=== PATIENT | male | born 1950 | race Caucasian/White ===

== ENCOUNTER 2018-01-05 13:19 | Emergency (ER) | payer MEDICARE, OTHER ==
[~2018-01-05] VITALS: Ht 172.7 cm; Wt 120.0 kg
[~2018-01-05 13:19] MED LIST: ASPI81 PO; COLY4000S PO; GABA400 PO; LISI10TA PO; METH500T3 PO; METO25 PO; MULTTAB4 PO; NIAC250C6 PO; OMEP20TA39 PO; SERT-132 PO; SIMV40TA PO; STOO100C PO; TERA2CAP3 PO
[2018-01-05 13:26] VITALS: BP 144/70; PULSE 54; RESP 17; TEMP 98; O2SAT 95
[2018-01-05 13:52] VITALS: BP 154/75; PULSE 53; RESP 16; O2SAT 96
[2018-01-05] MEDS ORDERED: TERA2CAP3 PO (14:09)
[2018-01-05] MEDS ORDERED: OMEP20TA93 PO (14:09)
[2018-01-05] MEDS ORDERED: SERT-132 PO (14:09)
[2018-01-05] MEDS ORDERED: NIAC500T5 PO (14:09)
[2018-01-05] MEDS ORDERED: ASPI81TA81 PO (14:09)
[2018-01-05] MEDS ORDERED: GABA400C5 PO (14:09)
[2018-01-05] MEDS ORDERED: LISI20TA PO (14:09)
[2018-01-05] MEDS ORDERED: METO25TA3 PO (14:09)
[2018-01-05] MEDS ORDERED: SIMV20TA PO (14:09)
[2018-01-05] MEDS ORDERED: MULTTAB67 PO (14:09)
[2018-01-05] MEDS ORDERED: METH500T3 PO (14:09)
[2018-01-05] MEDS ORDERED: ACETAMINOPHEN 500 MG CPLT PO ONE (14:15)
[2018-01-05 14:47] LABS: HEMATOCRIT 38.9 % (39.0-51.0); HEMOGLOBIN 13.2 GM/DL (13.0-17.0); MEAN CELL VOLUME 87.1 FL (80.0-100.0); MEAN CORPUSCULAR HEMOGLOBIN 29.7 PG (27.0-34.0); MEAN CORPUSCULAR HGB CONC 34.1 % (32.0-36.0); MEAN PLATELET VOLUME 9.1 FL (7.0-11.0); PLATELET COUNT 144 TH/MM3 (150-450); RED BLOOD COUNT 4.47 MIL/MM3 (4.50-5.90)
[2018-01-05 14:57] LABS: BICARBONATE 28.2 MEQ/L (21.0-32.0); CALCIUM 8.8 MG/DL (8.5-10.1)
--- NOTE | 2018-01-05 15:00 | PD ---
HPI Chief Complaint: Headache Time Seen by Provider: 13:52 Travel History International Travel<30 days: No Contact w/Intl Traveler<30days: No Traveled to known affect area: No History of Present Illness HPI 67-year-old man, presents emergency department complaining of feeling funny with dizziness and lightheadedness and some mild frontal headache ongoing for the past couple days. He is worried because he states he had similar symptoms before he needed his carotid endarterectomy. He has had similar presentation to the ED before. He otherwise had been feeling generally well. Has a lot of trouble with his back. Normally uses a wheelchair to get around but can walk with a walker. Headache was not abrupt in onset. No other complaints. History Past Medical History Narrative Medical Back problems BPH Hypertension Hyperlipidemia Tetanus Vaccination: < 5 Years Influenza Vaccination: Yes Social History Alcohol Use: No Tobacco Use: No (quit in 1988 smoked cigs) Allergies-Medications (Allergen,Severity, Reaction): Coded Allergies: No Known Allergies (Verified Adverse Reaction, Unknown, 01/05/18) Reported Meds & Prescriptions Reported Meds & Active Scripts Active Reported Multiple Vitamin 1 Tab 1 Tab PO DAILY Terazosin (Terazosin HCl) 2 Mg Cap 2 Mg PO HS Simvastatin 20 Mg Tab 20 Mg PO HS Sertraline (Sertraline HCl) 50 Mg Tab 50 Mg PO DAILY Omeprazole 20 Mg Tab 20 Mg PO BID Niacin 500 Mg Tab 500 Mg PO DAILY Metoprolol Tartrate 25 Mg Tab 12.5 Mg PO BID Methocarbamol 500 Mg Tab 500 Mg PO BID Lisinopril-Hctz 20-12.5 Mg Tab 1 Tab PO DAILY Gabapentin 400 Mg Cap 400 Cap PO TID Aspir-81 (Aspirin) 81 Mg Tabdr 1 Tab PO DAILY Review of Systems Except as stated in HPI: all other systems reviewed are Neg Physical Exam Narrative GENERAL: Heavyset 67-year-old man, no acute distress. SKIN: Focused skin assessment warm/dry. HEAD: Atraumatic. Normocephalic. EYES: Pupils equal and round. No scleral icterus. No injection or drainage. ENT: No nasal bleeding or discharge. Mucous membranes pink and moist. NECK: Trachea midline. No JVD. CARDIOVASCULAR: Regular rate and rhythm. No murmur appreciated. RESPIRATORY: No accessory muscle use. Clear to auscultation. Breath sounds equal bilaterally. GASTROINTESTINAL: Abdomen soft, non-tender, nondistended. Hepatic and splenic margins not palpable. MUSCULOSKELETAL: No obvious deformities. No edema. NEUROLOGICAL: Awake and alert. No obvious cranial nerve deficits. No facial asymmetry. Strength full and equal upper and lower extremities. Normal finger nose. Normal heel to [place]. Able to walk with the use of a cane without obvious instability or ataxia. PSYCHIATRIC: Appropriate mood and affect; insight and judgment normal. Data Data Last Documented VS Vital Signs Date Time Temp Pulse Resp B/P (MAP) Pulse Ox O2 Delivery O2 Flow Rate FiO2 01/05/18 15:38 16 01/05/18 13:59 50 95 Room Air 01/05/18 13:52 154/75 (101) 01/05/18 13:[address] Brain W/O Iv Contrast(Rout) (01/05/18 ) Complete Blood Count With Diff (01/05/18 14:10) Basic Metabolic Panel (Bmp) (01/05/18 14:10) Iv Access Insert/Monitor (01/05/18 14:10) Acetaminophen (Tylenol) (01/05/18 14:15) Electrocardiogram (01/05/18 ) Labs Laboratory Tests Test 01/05/18 14:30 White Blood Count 3.0 TH/MM3 Red Blood Count 4.47 MIL/MM3 Hemoglobin 13.2 GM/DL Hematocrit 38.9 % Mean Corpuscular Volume 87.1 FL Mean Corpuscular Hemoglobin 29.7 PG Mean Corpuscular Hemoglobin Concent 34.1 % Red Cell Distribution Width 13.0 % Platelet Count 144 TH/MM3 Mean Platelet Volume 9.1 FL CBC Comment AUTO DIFF Differential Total Cells Counted 100 Neutrophils % (Manual) 26 % Lymphocytes % 53 % Monocytes % 19 % Eosinophils % 2 % Neutrophils # (Manual) 0.8 TH/MM3 Differential Comment FINAL DIFF MANUAL Platelet Estimate NORMAL Platelet Morphology Comment NORMAL Blood Urea Nitrogen 14 MG/DL Creatinine 0.95 MG/DL Random Glucose 104 MG/DL Calcium Level 8.8 MG/DL Sodium Level 140 MEQ/L Potassium Level 4.0 MEQ/L Chloride Level 108 MEQ/L Carbon Dioxide Level 28.2 MEQ/L Anion Gap 4 MEQ/L Estimat Glomerular Filtration Rate 79 ML/MIN [facility] Medical Decision Making Medical Screen Exam Complete: Yes Emergency Medical Condition: Yes Interpretation(s) LABS: CBC remarkable for mild neutropenia. BMP unremarkable Head CT negative Differential Diagnosis Sinus headache, ICH, malignancy, cervicogenic headache, dental headache, tension headache, other Narrative Course Medical decision making This 67-year-old man who presents to the emergency department complaining of some frontal headache, mild to moderate, with some lightheadedness. No vertigo. Normal exam. Will check labs and CT given his age, likely normal recommend outpatient follow-up. Diagnosis Primary Impression: Headache Additional Impressions: Neutropenia Bradycardia Patient Instructions: General Instructions Additional Instructions: Take Tylenol or Motrin as needed for headache. Follow with her primary doctor regarding her abnormal blood test. They may want to adjust her medicine as well because her low heart rate. Return to the emergency department for any new or worsening symptoms. Med/Other Pt SpecificInfo: No Change to Meds Disposition: 01 DISCHARGE HOME Condition: Stable John Rasheed MD Jan 05, 2018 15:00
[2018-01-05 15:01] LABS: CREATININE 0.95 MG/DL (0.60-1.30)
--- NOTE | 2018-01-05 15:12 | RADRPT ---
EXAM DATE/TIME: 01/05/2018 14:31 [facility] COMPARISON: No previous studies available for comparison. INDICATIONS : Cephalgia. Dizziness. RADIATION DOSE: 62.82 CTDIvol (mGy) MEDICAL HISTORY : Myocardial infarction. Gastroesophageal reflux disease. Hypertension. SURGICAL HISTORY : Cholecystectomy. ENCOUNTER: Initial ACUITY: 3 days PAIN SCALE: 4/10 LOCATION: cranial TECHNIQUE: Multiple contiguous axial images were obtained of the head. Using automated exposure control and adj ustment of the mA and/or kV according to patient size, radiation dose was kept as low as reasonably a chievable to obtain optimal diagnostic quality images. DICOM format image data is available electro nically for review and comparison. FINDINGS: CEREBRUM: The ventricles are normal for age. No evidence of midline shift, mass lesion, hemorrhage or acute in farction. No extra-axial fluid collections are seen. POSTERIOR FOSSA: The cerebellum and brainstem are intact. The 4th ventricle is midline. The cerebellopontine angle i s unremarkable. EXTRACRANIAL: The visualized portion of the orbits is intact. SKULL: The calvaria is intact. No evidence of skull fracture. CONCLUSION: Normal examination. John Garcia MD on January 05, 2018 at 15:09 Board Certified Radiologist. This report was verified electronically.
[2018-01-05 15:30] LABS: LYMPHOCYTES 53 % (9-44); MONOCYTES 19 % (0-8); NEUTROPHIL # MANUAL DIFF 0.8 TH/MM3 (1.8-7.7); POLYS (SEG NEUTROPHILS) 26 % (16-70)
[2018-01-05 15:38] VITALS: RESP 16
[2018-01-05 16:19] VITALS: BP 146/72
--- NOTE | 2018-01-06 16:35 | EKG ---
Date Performed: 01/05/2018 Time Performed: 16:06:42 PTAGE: 67 years EKG: SINUS BRADYCARDIA MARKED LEFT AXIS DEVIATION MODERATE INTRAVENTRICULAR CONDUCTION DELAY ABN ORMAL ECG PREVIOUS TRACING : 04/05/2014 22.15 Since the previous tracing, no significant change noted DOCTOR: Yosi Dailey Interpretating Date/Time 01/06/2018 16:30:05
== END 2018-01-05 16:15 | disposition home or self-care (01) ==
LOC: PHED 13:19
DX: R51 Headache (principal); D70.9 Neutropenia, unspecified; R00.1 Bradycardia, unspecified; R42 Dizziness and giddiness; E78.5 Hyperlipidemia, unspecified; I10 Essential (primary) hypertension; Z87.891 Personal history of nicotine dependence
CPT/HCPCS: 70450; 80048; 85007; 85027; 93005; 99285